=== PATIENT | male | born 1955 | race Hispanic/Latino ===

== ENCOUNTER 2018-04-23 09:51 | Inpatient (IN) | payer MEDICARE ==
--- NOTE | 2018-04-23 10:49 | C.PDOC ---
History Of Present Illness 63 y/o male, w/PMhx of COPD, sciatica and bilateral leg edema, presents to the ER requesting detox from heroin. Patient states that he has been snorting 5 bags of heroin daily for the past 5 years. Patient reports that his last use was at 5 am. He notes that he is prescreened. Denies having suicidal ideation, homicidal ideation, and active physical complaints. Time Seen by Provider: 04/23/18 10:10 Chief Complaint (Nursing): Substance Abuse History Per: Patient History/Exam Limitations: no limitations Past Medical History Reviewed: Historical Data, Nursing Documentation, Vital Signs Vital Signs: Last Vital Signs Temp 99.1 F 04/23/18 10:08 Pulse 86 04/23/18 10:08 Resp 18 04/23/18 10:08 BP 135/79 04/23/18 10:08 Pulse Ox 91 L 04/23/18 10:08 - Medical History PMH: Anxiety, Back Problems, COPD Surgical History: Tonsillectomy Family History: States: No Known Family Hx - Social History Hx Alcohol Use: Yes Hx Substance Use: Yes - Immunization History Hx Tetanus Toxoid Vaccination: No Hx Influenza Vaccination: No Hx Pneumococcal Vaccination: No Review Of Systems Except As Marked, All Systems Reviewed And Found Negative. Constitutional: Negative for: Fever, Chills Psych: Negative for: Suicidal ideation Physical Exam - Physical Exam Appears: No Acute Distress, Other (sleepy) Skin: Normal Color, Warm, Dry Head: Atraumatic, Normacephalic Eye(s): bilateral: Normal Inspection Nose: Normal Oral Mucosa: Moist Neck: Supple Chest: Symmetrical Cardiovascular: Rhythm Regular Respiratory: Normal Breath Sounds, No Rales, No Rhonchi, No Wheezing Gastrointestinal/Abdominal: Normal Exam, Soft, No Tenderness, No Guarding, No Rebound Extremity: Normal ROM, Other (edema to bilateral lower extremities) Neurological/Psych: Oriented x3, Normal Speech ED Course And Treatment - Laboratory Results Result Diagrams: 04/23/18 11:31 04/23/18 11:31 Lab Interpretation: No Acute Changes O2 Sat by Pulse Oximetry: 91 (RA) Progress Note: Medically cleared for Crisis evaluation. 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 - Scribe Statement The provider has reviewed the documentation as recorded by the Rocky Frank Provider Attestation All medical record entries made by the Connoribboris were at my direction and personally dictated by me. I have reviewed the chart and agree that the record accurately reflects my personal performance of the history, physical exam, medical decision making, and the department course for this patient. I have also personally directed, reviewed, and agree with the discharge instructions and disposition. Decision To Admit - Pt Status Changed To: Hospital Disposition Of: Inpatient - Admit Certification Admit to Inpatient:: After my assessment, the patient will require hospitalization for at least two midnights. This is because of the severity of symptoms shown, intensity of services needed, and/or the medical risk in this patient being treated as an outpatient. - InPatient: Physician Admission Certification: I certify that this patient requires 2 or more midnights of care for the following reason:: Alcohol abuse severe - . Bed Request Type: Detox Admitting Physician: Anyi Gu Patient Diagnosis: Alcohol abuse
[2018-04-23 11:37] LABS: BASO # 0.1 K/uL (0.0-0.2); BASO % 0.8 % (0.0-2.0); EOS # 0.5 K/uL (0.0-0.7); HEMOGLOBIN 14.7 g/dL (12.0-18.0); LYMPH % 17.8 % (20.0-40.0); MEAN CELL VOLUME 98.8 fL (80.0-94.0); MEAN CORPUSCULAR HEMOGLOBIN 33.8 pg (27.0-31.0); MEAN CORPUSCULAR HGB CONC 34.2 g/dL (33.0-37.0); MEAN PLATELET VOLUME 8.6 fL (7.2-11.7); MONO # 1.1 K/uL (0.0-0.8); MONO % 9.5 % (0.0-10.0); NEUT # 7.7 K/uL (1.8-7.0); NEUT % 67.9 % (50.0-75.0); RBC 4.34 Mil/uL (4.40-5.90); RED CELL DISTRIBUTION WIDTH 12.8 % (11.5-14.5); WHITE BLOOD COUNT 11.4 K/uL (4.8-10.8)
[2018-04-23 11:51] LABS: ALB/GLOB RATIO 1.4 (1.0-2.1); ALBUMIN 4.1 g/dL (3.5-5.0); ALT/SGPT 13 U/L (21-72); AST/SGOT 25 U/L (17-59); BLOOD UREA NITROGEN 22 mg/dL (9-20); CALCIUM 8.8 mg/dl (8.6-10.4); GFR NON-AFRICAN AMERICAN > 60
[2018-04-23 13:18] LABS: SQUAMOUS EPITHIAL 1 /hpf (0-5); URINE BACTERIA RARE (<OCC); URINE BILIRUBIN NEGATIVE (NEGATIVE); URINE BLOOD 1+ (NEGATIVE); URINE CLARITY Clear (Clear); URINE COLOR Yellow (YELLOW); URINE GLUCOSE (UA) NORMAL (Normal); URINE LEUKOCYTE ESTERASE NEG Leu/uL (Negative); URINE PROTEIN NEGATIVE (NEGATIVE); URINE UROBILINOGEN NORMAL mg/dL (0.2-1.0)
[2018-04-23 13:30] LABS: BARBITURATES, UR NEGATIVE (NEGATIVE); PHENCYCLIDINE, UR NEGATIVE (NEGATIVE)
[2018-04-23 13:48] LABS: BENZODIAZEPINES, UR POSITIVE (NEGATIVE); OPIATES, UR POSITIVE (NEGATIVE)
[2018-04-23] MEDS ORDERED: Aluminum Hydroxide/Magnesium Hydroxide Susp (30 mL) PO PRN (14:56)
--- NOTE | 2018-04-23 15:29 | PCM.BM ---
<Richy Abrams - Last Filed: 04/23/18 15:26> Treatment Plan Problems - Problems identified on initial assessmt anixiety related to substance use Date Initiated: 04/23/18 Time Initiated: 15:27 Assessment reference: NA Status: Active knowledge deficit alcohol use Date Initiated: 04/23/18 Time Initiated: 15:29 Assessment reference: NA Status: Active denial Date Initiated: 04/23/18 Time Initiated: 15:29 Assessment reference: NA Status: Active defensive coping Date Initiated: 04/23/18 Time Initiated: 15:30 Assessment reference: NA Status: Active Treatment assets and liabiliti Patient Assests: adapts well, cooperative, ADL independent, cognitively intact Patient Liabilities: substance abuse, medical problems - Milieu Protocol Maintain good personal hygiene: daily Encourage regular showers, daily Remind patient to perform daily oral care, daily Assist patient to perform ADL's Conduct patient checks and document Observation sheet: Q15 minutes Maintain personal safety: every shift Educate patient to report safety concerns to staff, every shift Monitor environment for contraband/sharps Medication safety: Monitor for expected outcome, potential side effects: every shift, Assess barriers to learning: every shift, Assess readiness for medication education: every shift <Marycarmen Cuenca - Last Filed: 04/24/18 13:14> Family Contact Family involvement: No known Family/SO - Goals for Treatment Patient goals for treatment: Complete detox and transition to MAT with Vivitrol. Discharge/Continuing Care - Education Needs Education Needs: Patient Medication, Patient Diagnosis/Disease Process, Patient Coping Skills, Patient Anger Management skills, Patient Placement options, Patient Community resources - Discharge Discharge Criteria: No longer exhibiting s/s of withdrawal, Reduction of target symptoms Discharge to:: Home - Treatment Team Participation Patient/Family/SO Statement: 04/24/18 13:14 "I wanna get the Vivitrol shots after I leave here..." Discussed with Family/SO: No Was Patient/Family/SO present at Treatment Team Meeting: Yes
[2018-04-23] MEDS: Multiple Vitamins Tab PO SCH (16:20)
[2018-04-24] MEDS: Multiple Vitamins Tab PO SCH (09:32)
--- NOTE | 2018-04-24 10:20 | PCM.PSYCH ---
Initial Psychiatric Evaluation - Initial Psychiatric Evaluation Type of Admission: Voluntary Legal Status: Capacity Chief Complaint (in patient's own words): "I need detox real bad" History of Present Illness and Precipitating Events: Patient is a 63 -year-old, male who is , unemployed, and living with his mother in [place]. He has 3 children who are all adults. He presents for alcohol and heroin detox. Patient states that he is tired of being addicted and dependent and want to quit. He admits to using 15-20 bags of heroin, intranasally, daily. He has been using heroin since for the past 5 years with no periods of time of sobriety. Patient denies having a history of overdoses. Patient also reports drinking 1 pint of vodka a day. He started drinking heavily 5 years ago. Patient denies having a history of DTs, seizures, or blackouts. Patient also reports taking 3 tablets of Xanax, daily. He has been taking Xanax for several years for his panic attacks. Patient reports selling his oxycodone, prescribed for previous accident, and a portion of his Xanax pills to pay for his heroin. Patient denies using any other substances including cocaine, PCP, and MJ. This is his 1st time in detox. Patient denies ever being in detox or rehab before. Patient denies any suicidal or homicidal ideation, hallucinations, and paranoia. Past Psychiatric History: Panic attacks, some depression Family Psych History: none PMHx: none Meds: Xanax Current Medications: Active Medications Generic Name Dose Route Start Last Admin Trade Name Freq PRN Reason Stop Dose Admin Al Hydrox/Mg Hydrox/Simethicone 30 ml 04/23/18 14:56 04/23/18 16:33 Maalox 30 Ml PO 30 ml TID PRN Administration Indigestion / Heartburn Chlordiazepoxide 25 mg 04/23/18 18:00 04/24/18 05:58 Librium PO 04/28/18 17:59 25 mg Q6H SHAINA Administration Taper Chlordiazepoxide 25 mg 04/23/18 16:00 04/23/18 16:20 Librium PO 25 mg Q4H PRN Administration Alcohol Withdrawal Clonidine HCl 0.1 mg 04/23/18 14:56 04/23/18 16:20 Catapres PO 0.1 mg Q4 PRN Administration COWS Score More or Equal to 5 Folic Acid 1 mg 04/23/18 16:00 04/24/18 09:32 Folic Acid PO 1 mg DAILY SHAINA Administration Hydroxyzine HCl 25 mg 04/23/18 14:56 04/23/18 16:20 Atarax PO 25 mg Q4H PRN Administration Anxiety Ibuprofen 400 mg 04/23/18 14:56 Motrin Tab PO Q6H PRN Pain, moderate (4-7) Loperamide HCl 2 mg 04/23/18 14:56 Imodium PO Q8 PRN Diarrhea Multivitamins 1 tab 04/23/18 16:00 04/24/18 09:32 Hexavitamin PO 1 tab DAILY SHAINA Administration Ondansetron HCl 4 mg 04/23/18 14:56 Zofran Tab PO Q8 PRN Nausea/Vomiting Thiamine HCl 100 mg 04/23/18 16:00 04/24/18 09:32 Vitamin B1 Tab PO 100 mg DAILY SHAINA Administration Trazodone HCl 50 mg 04/23/18 22:00 04/23/18 21:15 Desyrel PO 50 mg HS SHAINA Administration Past Psychiatric History - Past Psychiatric History Previous Treatment History: Intensive Outpatient Pertinent Medical Hx (Current Medical&Sleep Prob, Allergies): Allergies Allergy/AdvReac Type Severity Reaction Status Date / Time No Known Allergies Allergy Verified 04/23/18 10:17 Alprazolam [Alprazolam ER] 0.5 mg PO PRN PRN 04/23/18 Naproxen [Anaprox] 375 mg PO BID 04/23/18 Review of Systems - Psychiatric Psychiatric: Abnormal Sleep Pattern, Behavioral Changes, Change in Appetite, Difficulty Concentrating, Irritability, Mood Swings. absent: Hallucinations, Homicidal Ideation, Suicidal Ideation Mental Status Examination - Personal Presentation Personal Presentation: Looks stated age - Affect Affect: Constricted - Motor Activity Motor Activity: Psychomotor Agitation - Reliability in Providing Information Reliability in Providing Information: Fair - Speech Speech: Organized - Mood Mood: Anxious - Formal Thought Process Formal Thought Process: No Impairment - Obsessions/Compulsions Obsessions: No Compulsions: No - Cognitive Functions Orientation: Person, Place, Situation, Time Sensorium: Alert Attention/Concentration: Attentive Abstract Thinking: [place] Estimate of Intelligence: Average Judgement: Intact, as evidence by: Insight regarding need for hospitalization Memory: Recent intact, as evidence by: Ability to recall events of the day, Remote intact, as evidenced by: Abilit to recall sig. life events - Risk Risk: Withdrawal, Diminished functioning - Strength & Assets Inventory Strength & Assets Inventory: Family support, Cooperative - Limitations Limitations: Other DSM 5 DX - DSM 5 DSM 5 Diagnosis: Alcohol withdrawal Opioid withdrawal Alcohol use disorder, severe Opioid use disorder, severe Borderline Personality disorder traits Panic d/o - Recommended/Plan of Treatment Treatment Recommendations and Plan of Treatment: Taper with Librium Methadone or subutex detox when he withdraws. Has mild sxs now. He even says he is "surprised." Gabapentin for augmentation if needed As needed medications All risks, benefits and alternatives of the meds discussed, and the pt agreed and understood. Attend groups and activities Supportive therapy and psychoeducation [place] for abstinence CBT for relapse prevention Encourage MAT Refer to rehab or IOP, and self-help groups Teach healthy lifestyle methods, i.e. diet, exercise, meditation Smoking cessation with [place] Nicotine patch if needed 34 min Projected ELOS: 4-5 days Prognosis: good with treatment
--- NOTE | 2018-04-24 14:14 | RAD ---
Date of service: 04/24/2018 PROCEDURE: HISTORY: Swelling redness to Right elbow COMPARISON: None TECHNIQUE: Three views each elbow FINDINGS: No fracture or lytic lesion seen. Bilateral olecranon spurring noted the soft tissues are particularly swollen and increased in density posterior to the left olecranon here and olecranon bursitis type nonspecified is suggested. Reticulated subcutaneous edema-lymphedema and/or cellulitis inferred the ulnar aspect of the elbow. Along the left medial epicondyle-small bony excrescence-compatible with ligamentous and/or CT tendinous calcifications and/or tiny tug like bony response. Similarly at slightly smaller bony excrescence noted along the lateral humeral epicondyle No anterior elbow joint effusions appreciated IMPRESSION: No fracture or lytic lesions. Bilateral olecranon spurring. Tiny bony spurs along the humeral epicondyles-differential considerations as above. Focal left posterior olecranon bordering soft tissue swelling-prominent olecranon bursitis with left upper extremity bordering subcutaneous edema/lymphedema/cellulitis. No gas-forming cellulitis seen. Follow-up recommended. No periosteal reaction seen to suggest osteomyelitis.
[2018-04-24] MEDS ORDERED: Magnesium Hydroxide Susp 30 ml UD PO ONE (14:24)
--- NOTE | 2018-04-24 19:15 | CP.PCM.PN ---
Subjective - Date & Time of Evaluation Date of Evaluation: 04/24/18 Time of Evaluation: 19:12 - Subjective Subjective: pt admited to psych for detox alc abuse i was called to pt foe elbow swalen and hurts ordered xray positive for bursitis pt is taking motrin Objective - Vital Signs/Intake and Output Vital Signs (last 24 hours): Temp Pulse Resp BP Pulse Ox 98.0 F 85 18 144/91 H 94 L 04/24/18 17:23 04/24/18 17:23 04/24/18 17:23 04/24/18 17:23 04/24/18 17:23 - Medications Medications: Current Medications Al Hydrox/Mg Hydrox/Simethicone (Maalox 30 Ml) 30 ml PO TID PRN PRN Reason: Indigestion / Heartburn Last Admin: 04/23/18 16:33 Dose: 30 ml Chlordiazepoxide (Librium) 25 mg PO Q6H [facility]; Taper Stop: 04/28/18 17:59 Last Admin: 04/24/18 17:13 Dose: 25 mg Chlordiazepoxide (Librium) 25 mg PO Q4H PRN PRN Reason: Alcohol Withdrawal Last Admin: 04/23/18 16:20 Dose: 25 mg Clonidine HCl (Catapres) 0.1 mg PO Q4 PRN PRN Reason: COWS Score More or Equal to 5 Last Admin: 04/23/18 16:20 Dose: 0.1 mg Folic Acid (Folic Acid) 1 mg PO DAILY [facility] Last Admin: 04/24/18 09:32 Dose: 1 mg Hydroxyzine HCl (Atarax) 25 mg PO Q4H PRN PRN Reason: Anxiety Last Admin: 04/23/18 16:20 Dose: 25 mg Ibuprofen (Motrin Tab) 400 mg PO Q6H PRN PRN Reason: Pain, moderate (4-7) Loperamide HCl (Imodium) 2 mg PO Q8 PRN PRN Reason: Diarrhea Multivitamins (Hexavitamin) 1 tab PO DAILY [facility] Last Admin: 04/24/18 09:32 Dose: 1 tab Ondansetron HCl (Zofran Tab) 4 mg PO Q8 PRN PRN Reason: Nausea/Vomiting Thiamine HCl (Vitamin B1 Tab) 100 mg PO DAILY [facility] Last Admin: 04/24/18 09:32 Dose: 100 mg Trazodone HCl (Desyrel) 50 mg PO HS [facility] Last Admin: 04/23/18 21:15 Dose: 50 mg - Labs Labs: 04/23/18 11:31 04/23/18 11:31 - Constitutional Appears: Non-toxic - Head Exam Head Exam: ATRAUMATIC - Eye Exam Eye Exam: Normal appearance Pupil Exam: NORMAL ACCOMODATION - ENT Exam ENT Exam: Normal Exam - Neck Exam Neck Exam: Normal Inspection - Respiratory Exam Respiratory Exam: Clear to Ausculation Bilateral - Cardiovascular Exam Cardiovascular Exam: REGULAR RHYTHM - GI/Abdominal Exam GI & Abdominal Exam: Normal Bowel Sounds - Rectal Exam Rectal Exam: Deferred - Exam Exam: NORMAL INSPECTION - Extremities Exam Additional comments: swalen elbows - Back Exam Back Exam: NORMAL INSPECTION - Neurological Exam Neurological Exam: Alert, Oriented x3 - Psychiatric Exam Psychiatric exam: Normal Affect - Skin Skin Exam: Normal Color Assessment and Plan - Assessment and Plan (Free Text) Assessment: bursitis both elbows cont motrin Plan: motrin
[2018-04-25] MEDS ORDERED: Buprenorphine Hydrochloride 2 mg SL ONE ×2 (02:26→03:42)
[2018-04-25 06:04] VITALS: BP 150/98; PULSE 90; RESP 20; TEMP 98.1; O2SAT 96
--- NOTE | 2018-04-25 08:44 | PCM.PYCHDC ---
Mental Status Examination - Mental Status Examination Orientation: Person Discharge Summary - Discharge Note Consultations:: List each consultation separately and include: 1. Reason for request. 2. Findings. 3. Follow-up Summary of Hospital Course include:: 1. Description of specific treatment plan utilized for patients during their course of treatmen. 2. Summarize the time- course for resolution of acute symptoms and/or regressed behaviors. 3. Describe issues identified and worked on during hospitalization. 4. Describe medication utilized. 5. Describe medical problems identified and treated. 6. Reassessment of suicide risk Summary of Hospital Course: Patient is a 63 -year-old, male who is , unemployed, and living with his mother in [place]. He has 3 children who are all adults. He presents for alcohol and heroin detox. Patient states that he is tired of being addicted and dependent and want to quit. He admits to using 15-20 bags of heroin, intranasally, daily. He has been using heroin since for the past 5 years with no periods of time of sobriety. Patient denies having a history of overdoses. Patient also reports drinking 1 pint of vodka a day. He started drinking heavily 5 years ago. Patient denies having a history of DTs, seizures, or blackouts. Patient also reports taking 3 grams of Xanax, daily. He has been taking Xanax for several years for his panic attacks. Patient reports selling his oxycodone, prescribed for previous accident, and a portion of his Xanax pills to pay for his heroin. Patient denies using any other substances including cocaine, PCP, and MJ. This is his 1st time in detox. Patient denies ever being in detox or rehab before. Patient denies any suicidal or homicidal ideation, hallucinations, and paranoia. Past Psychiatric History: Panic attacks Family Psych History: none PMHx: none Meds: Xanax - Final Diagnosis (DSM 5) Condition upon Discharge: STABLE Disposition: AGAINST MEDICAL ADVICE Follow-up Treatment Plan: Taper with Librium Gabapentin for augmentation if needed As needed medications All risks, benefits and alternatives of the meds discussed, and the pt agreed and understood. Attend groups and activities Supportive therapy and psychoeducation [place] for abstinence CBT for relapse prevention Encourage MAT Refer to rehab or IOP, and self-help groups Teach healthy lifestyle methods, i.e. diet, exercise, meditation Smoking cessation with [place] Nicotine patch if needed 34 min
== END 2018-04-25 07:00 | disposition left against medical advice (07) | DRG 894 ==
LOC: C.ER 09:51 → C.7D 14:02
PROVIDERS: ADMIT Psychiatry & Neurology Psychiatry; ATTEND Psychiatry & Neurology Psychiatry
DX: F11.23 Opioid dependence with withdrawal (principal); F41.0 Panic disorder [episodic paroxysmal anxiety]; J44.9 Chronic obstructive pulmonary disease, unspecified; F10.230 Alcohol dependence with withdrawal, uncomplicated; Y90.0 Blood alcohol level of less than 20 mg/100 ml